=== PATIENT | female | born 1995 | race Caucasian/White ===

== ENCOUNTER 2018-07-15 08:55 | Emergency (ER) | payer BC ==
[2018-07-15] MEDS ORDERED: ACETAMINOPHEN 325 MG TABLET PO ONE (09:32)
--- NOTE | 2018-07-15 09:34 | ER Document Report ---
ED Medical Screen (RME) - General Chief Complaint: Vaginal Bleeding Stated Complaint: VAGINAL BLEEDING Time Seen by Provider: 07/15/18 09:27 Notes: Patient is a 23-year-old female that presents to the emergency department for chief complaint of pelvic cramping and bleeding. Patient reports having the Mirena IUD since July 2017, was placed by an MARKETING PROJECT COORDINATOR in [facility]. She states that 2 weeks ago she had a normal period, then more recently she started having heavy bleeding a few days ago, then had severe cramping over the past 2 days, including this morning and she had a brief episode where she fainted, but did not fall or hit her head. She called local MARKETING PROJECT COORDINATOR office and advised to come to the ED to be evaluated. ROS: Other than noted above, the 12 point review of systems was reviewed with the patient and were negative, all pertinent findings are included in the HPI. PHYSICAL EXAMINATION: Vital signs reviewed. GENERAL: Obese female, no acute distress HEAD: Atraumatic, normocephalic. EYES: Pupils equal round extraocular movements intact, conjunctiva are normal. ENT: Nares patent NECK: Normal range of motion CV: Heart regular rate and rhythm LUNGS: No respiratory distress Musculoskeletal: Normal range of motion NEUROLOGICAL: Normal speech PSYCH: Normal mood, normal affect. MDM: Patient seen and examined for rapid initial assessment. Vital signs reviewed. A comprehensive ED assessment and evaluation of the patient, analysis of test results and completion of the medical decision making process will be conducted by additional ED providers. *Note is created using voice recognition software and may contain spelling, syntax or grammatical errors. Physical Exam - Vital signs Vitals: Temp Pulse Resp BP Pulse Ox 98.3 F 87 17 150/78 H 96 07/15/18 08:59 07/15/18 08:59 07/15/18 08:59 07/15/18 08:59 07/15/18 08:59 Course - Vital Signs Vital signs: Temp Pulse Resp BP Pulse Ox 98.3 F 87 17 150/78 H 96 07/15/18 08:59 07/15/18 08:59 07/15/18 08:59 07/15/18 08:59 07/15/18 08:59
[2018-07-15 10:01] LABS: ABSOLUTE BASOPHILS # (AUTO) 0.1 10^3/uL (0.0-0.2); ABSOLUTE EOSINOPHILS # (AUTO) 0.1 10^3/uL (0.0-0.6); ABSOLUTE LYMPHOCYTES (AUTO) 1.6 10^3/uL (0.5-4.7); ABSOLUTE NEUT (AUTO) 11.2 10^3/uL (1.7-8.2); BASOPHILS % (AUTO) 0.6 % (0-2); HEMATOCRIT 41.4 % (36.0-47.0); HEMOGLOBIN 14.1 g/dL (12.0-15.5); LYMPHOCYTES % (AUTO) 11.5 % (13-45); MEAN CORPUSCULAR HEMOGLOBIN 29.7 pg (27.0-33.4); MEAN CORPUSCULAR VOLUME 87 fl (80-97); MONOCYTES % (AUTO) 6.8 % (3-13); PLATELET COUNT 325 10^3/uL (150-450); RED BLOOD COUNT 4.74 10^6/uL (3.72-5.28); RED CELL DISTRIBUTION WIDTH 13.4 % (11.5-14.0); SEGMENTED NEUTROPHILS % (AUTO) 80.1 % (42-78); TOTAL CELLS COUNTED % (AUTO) 100 %
[2018-07-15 10:07] LABS: APPEARANCE,URINE SLIGHTLY-CLOUDY; BILIRUBIN,URINE NEGATIVE (NEGATIVE); COLOR,URINE YELLOW; GLUCOSE, URINE NEGATIVE (NEGATIVE); KETONES,URINE NEGATIVE (NEGATIVE); LEUKOCYTE ESTERASE,URINE LARGE (NEGATIVE); NITRITE,URINE NEGATIVE (NEGATIVE); PROTEIN,URINE NEGATIVE (NEGATIVE); URINE SPECIFIC GRAVITY 1.013; UROBILINOGEN,URINE NEGATIVE mg/dL (<2.0)
--- NOTE | 2018-07-15 11:19 | RADIOLOGY REPORT (SQ) ---
EXAM DESCRIPTION: U/S NON OB PEL TV W/DOPPLER COMPLETED DATE/TIME: 07/15/2018 11:01 am REASON FOR STUDY: pelvic pain, mirena iud COMPARISON: None. TECHNIQUE: Dynamic and static grayscale images acquired of the pelvis via transvaginal approach and recorded on PACS. Additional selected color Doppler and spectral images recorded. LIMITATIONS: None. FINDINGS: UTERUS: Contour normal. No mass. ENDOMETRIAL STRIPE: IUD is in place. No focal mass or thickening. CERVIX: There are small nabothian cysts. RIGHT OVARY AND DOPPLER: There is a small right ovarian cyst measured 2.2 x 2.3 x 1.6 cm. There is n ormal flow. LEFT OVARY AND DOPPLER: Ovary not visualized. FREE FLUID: None noted. OTHER: No other significant finding. MEASUREMENTS: UTERUS: 6.7 x 4.7 x 3.0 cm. ENDOMETRIAL STRIPE: IUD is in place. RIGHT OVARY: 4.0 x 1.3 x 2.5 cm. LEFT OVARY: Not visualized. IMPRESSION: 1. Small right ovarian cyst largest diameter is 2.3 cm. 2. IUD is in place. 3. Nonvisualization of the left ovary. TECHNICAL DOCUMENTATION: JOB ID: [id number] [employer]- All Rights Reserved Reading location - IP/workstation name: [email or web address]
[2018-07-15 11:51] LABS: RBCS (WET MOUNT) FEW RBCS SEEN; T.VAGINALIS (WET MOUNT) NO TRICHOMONAS SEEN; WBCS (WET MOUNT) 2+ WBCS SEEN; YEAST (WET MOUNT) NO YEAST SEEN
--- NOTE | 2018-07-15 12:20 | ER Document Report ---
ED GI/ - General Chief Complaint: Vaginal Bleeding Stated Complaint: VAGINAL BLEEDING Time Seen by Provider: 07/15/18 09:27 Primary Care Provider: CALEB LYLES MD [ACTIVE STAFF] - Follow up as needed Mode of Arrival: Ambulatory Information source: Patient Notes: Patient is a 23-year-old female who presents to the ER today for abnormal vaginal bleeding after being on the Mirena IUD for approximately 1 year. Patient states that she had a normal menstrual cycle 2 weeks ago and then abnormal heavy bleeding afterwards for 1 day, then 2 days of nothing but had the "worst cramps I have ever had" all across her lower abdomen and then some brown discharge this morning. Patient denies any other abnormal vaginal discharge, she states she is not concerned about STDs, in a monogamous relationship with her boyfriend, but states that the pain was so bad across her lower abdomen that she "fainted this morning." - Related Data Allergies/Adverse Reactions: amoxicillin Allergy (Verified 07/15/18 10:16) Hives Penicillins Allergy (Verified 07/15/18 10:16) Hives Sulfa (Sulfonamide Antibiotics) Allergy (Verified 07/15/18 10:16) Hives Past Medical History - General Information source: Patient Last Menstrual Period: 2 weeks ago - Social History Smoking Status: Never Smoker Chew tobacco use (# tins/day): No Frequency of alcohol use: Occasional Drug Abuse: None Family History: Reviewed & Not Pertinent Patient has suicidal ideation: No Patient has homicidal ideation: No Pulmonary Medical History: Reports: Hx Asthma Renal/ Medical History: Denies: Hx Peritoneal Dialysis Musculoskeletal Medical History: Reports Hx Arthritis Past Surgical History: Reports: Hx Appendectomy, Hx Cholecystectomy Review of Systems - Review of Systems Constitutional: No symptoms reported EENT: No symptoms reported Cardiovascular: No symptoms reported Respiratory: No symptoms reported Gastrointestinal: See HPI Genitourinary: No symptoms reported Female Genitourinary: See HPI Musculoskeletal: No symptoms reported Skin: No symptoms reported Hematologic/Lymphatic: No symptoms reported Neurological/Psychological: No symptoms reported Physical Exam - Vital signs Vitals: Temp Pulse Resp BP Pulse Ox 98.3 F 87 17 150/78 H 96 07/15/18 08:59 07/15/18 08:59 07/15/18 08:59 07/15/18 08:59 07/15/18 08:59 - Notes Notes: PHYSICAL EXAMINATION: GENERAL: Well-appearing and in no acute distress. HEAD: Atraumatic, normocephalic. EYES: Pupils equal round and reactive to light, extraocular movements intact, sclera anicteric, conjunctiva are normal. NECK: Normal range of motion, supple without lymphadenopathy LUNGS: CTAB and equal. No wheezes rales or rhonchi. HEART: Regular rate and rhythm without murmurs ABDOMEN: Soft, suprapubic, right lower quadrant and left lower quadrant tenderness. No guarding, no rebound Pelvic: Cervical motion tenderness and adnexal tenderness, cannot visualize IUD strings BACK: no vertebral tenderness, normal ROM GI/: no CVA tenderness EXTREMITIES: Normal range of motion, no pitting edema. No cyanosis. NEUROLOGICAL: Cranial nerves grossly intact. Normal sensory/motor exams. PSYCH: Normal mood, normal affect. SKIN: Warm, Dry, normal turgor, no rashes or lesions noted Course - Vital Signs Vital signs: Temp Pulse Resp BP Pulse Ox 98.0 F 67 14 142/89 H 98 07/15/18 12:58 07/15/18 12:58 07/15/18 12:58 07/15/18 12:58 07/15/18 12:58 - Laboratory Result Diagrams: 07/15/18 09:46 Laboratory results interpreted by me: 07/15/18 07/15/18 09:46 09:46 WBC 14.0 H Seg Neutrophils % 80.1 H Lymphocytes % 11.5 L Absolute Neutrophils 11.2 H Urine Blood MODERATE H Ur Leukocyte Esterase LARGE H Discharge - Discharge Clinical Impression: Abnormal uterine bleeding, Pelvic infection Condition: Stable Disposition: HOME, SELF-CARE Instructions: Pelvic Inflammatory Disease ([facility]) Additional Instructions: Return immediately for any new or worsening symptoms. Follow up with OBGYN, call tomorrow to make followup appointment in 2 weeks. Prescriptions: Doxycycline Hyclate 100 mg PO BID #28 capsule Referrals: CALEB LYLES MD [ACTIVE STAFF] - Follow up as needed
[2018-07-15] MEDS ORDERED: LIDOCAINE 1% INJ-PF (10 MG/ML) 30 ML SDV NEB ONE (12:25)
[2018-07-15] MEDS ORDERED: AZITHROMYCIN 250 MG TABLET PO ONE (12:25)
[2018-07-15] MEDS ORDERED: CEFTRIAXONE INJ 250 MG VIAL IM ONE (12:25)
[2018-07-15 13:02] VITALS: BP 142/89
[2018-07-15 13:15] LABS: CHLAM PCR NOT DETECTED (NOT DETECT); GON PCR NOT DETECTED (NOT DETECT)
--- NOTE | 2018-07-15 21:51 | EKG REPORT ---
SEVERITY:- NORMAL ECG - SINUS RHYTHM : Confirmed by: Ailyn Tomlinson MD 15-Jul-2018 21:50:29
== END 2018-07-15 13:04 | disposition home or self-care (01) ==
LOC: ER 08:55
DX: N73.9 Female pelvic inflammatory disease, unspecified (principal); N93.8 Other specified abnormal uterine and vaginal bleeding; R10.30 Lower abdominal pain, unspecified; R55 Syncope and collapse; J45.909 Unspecified asthma, uncomplicated
CPT/HCPCS: 93005; 99284; 96372; 36415; 87086; 87210; 85025; 81025; 87088; 81001; 87186; 87491; 87591; 76830; 93976; 93010; J0696